=== PATIENT | female | born 1965 | race Caucasian/White ===

== ENCOUNTER → 2017-02-05 | Outpatient (CLI) | payer OTHER | LOC: RAD 12:01 | PROVIDERS: ATTEND Family Medicine | DX: M54.16 Radiculopathy, lumbar region (principal) | CPT/HCPCS: 72148 ==

== ENCOUNTER 2017-04-14 15:00 | Day surgery (SDC) | payer BC, OTHER ==
[2017-04-14] MEDS ORDERED: NALOXONE HCL INJ/PF 0.4 MG/1 ML SDV ONE (16:09)
[2017-04-14] MEDS ORDERED: GLUCAGON,HUMAN RECOMB 1 MG INJ ONE (16:10)
[2017-04-14] MEDS ORDERED: EPINEPHRINE INJ 1 MG/10 ML DISP.SYRIN ONE (16:10)
[2017-04-14] MEDS ORDERED: FLUMAZENIL INJ 0.5 MG/5 ML VIAL IV ONE (16:10)
[2017-04-14] MEDS: MIDAZOLAM 2 MG/2 ML INJ ONE ×2 (16:39→16:42)
[2017-04-14] MEDS: FENTANYL CITRATE INJ/PF 100 MCG/2 ML AMPUL ONE ×2 (16:41→16:45)
--- NOTE | 2017-04-14 17:30 | PDOC DISCHARGE SUMMARY ---
Discharge Summary (SDC) - Discharge Final Diagnosis: colon polyp Date of Surgery: 04/14/17 Condition: Stable Treatment or Instructions: none Discharge Diet: As Tolerated Discharge Activity: Activity As Tolerated Report the Following to Your Physician Immediately: Nausea, Vomiting, Swelling, Warmth
--- NOTE | 2017-04-14 17:33 | OPERATIVE REPORT E ---
Operative Report NAME: WENDY POTTER : 1965 AGE: 51Y DATE OF SURGERY: 04/14/2017 ROOM: PREOPERATIVE DIAGNOSIS: Colon cancer screening POSTOPERATIVE DIAGNOSES: 1. Sigmoid colon polyps. 2. Internal hemorrhoids. OPERATION: Colonoscopy with polypectomy. SURGEON: HENNY ZALDIVAR M.D. MEDICATION: Versed 4 mg, fentanyl 150 mcg IV push. TISSUE REMOVED OR ALTERED: Colon polyp. PROCEDURE: After informed consent was obtained from the patient, conscious sedation was achieved. The colonoscope was inserted to the colon and advanced to the cecum. The appendiceal orifice and terminal ileum were both identified. Cecal mucosa, ascending, transverse, and descending colon were normal. Two 4 mm polyps were removed from the sigmoid colon with the cold snare. Rectum had moderate-sized internal hemorrhoids. She tolerated the procedure well. PLAN: 1. Repeat colonoscopy in 5 to 10 years. 2. We will schedule her for infrared coagulation of the hemorrhoids. DICTATING PHYSICIAN: HENNY ZALDIVAR M.D. [id number] PHY#: [id number] ID: [id number] JOB#: [id number] ACCT: [id number] cc:Jania WILL M.D. >
[2017-04-14 18:04] VITALS: BP 126/75
== END 2017-04-14 18:07 | disposition home or self-care (01) ==
LOC: END 15:00
PROVIDERS: ATTEND Internal Medicine Gastroenterology
PROC: 0DBN8ZX Excision of Sigmoid Colon, Via Natural or Artificial Opening Endoscopic, Diagnostic (ICD-10-PCS; principal; 2017-04-14 15:45)
DX: Z12.11 Encounter for screening for malignant neoplasm of colon (principal); K63.5 Polyp of colon; K64.8 Other hemorrhoids; I73.00 Raynaud's syndrome without gangrene; K58.9 Irritable bowel syndrome, unspecified; Z88.5 Allergy status to narcotic agent
CPT/HCPCS: 45385; 88305 ×2; J2250; J3010; J0171; J1610; J2310; J3490